=== PATIENT | female | born 1965 | race Caucasian/White ===

== ENCOUNTER → 2020-12-03 | Outpatient (CLI) | payer BC | LOC: MC.RAD 07:46 | DX: N60.01 Solitary cyst of right breast (principal); N64.1 Fat necrosis of breast ==

== ENCOUNTER → 2020-12-11 | Outpatient (CLI) | payer BC | LOC: MC.RAD 09:59 | DX: R92.8 Other abnormal and inconclusive findings on diagnostic imaging of breast (principal) ==

== ENCOUNTER → 2021-07-04 | Outpatient (CLI) | payer BC | LOC: MC.RAD 07:45 | DX: N63.13 Unspecified lump in the right breast, lower outer quadrant (principal) ==